=== PATIENT | male | born 1960 | race Caucasian/White ===

== ENCOUNTER 2019-01-18 14:47 | Emergency (ER) | payer OTHER, BC ==
[2019-01-18] MEDS ORDERED: NA CHLORIDE 0.9% 1,000 ML ONE (15:14)
[2019-01-18] MEDS ORDERED: DIPHENHYDRAMINE 50 MG/ML VIAL ONE (15:19)
[2019-01-18 15:35] LABS: Absolute Lymphocytes (CBC) 0.9 K/uL (0.7-4.9); Basophils % 0.2 % (0-1.3); Lymphocytes % 6.5 % (15.3-44.8); MPV 7.9 fL (7.6-11.3); RBC Red Blood Cell Count 4.93 M/uL (4.33-5.43)
[2019-01-18 15:40] LABS: Protime INR 0.99
[2019-01-18 15:57] LABS: ALT/SGPT 44 U/L (12-78); AST/SGOT 24 U/L (15-37); Albumin 3.8 g/dL (3.4-5.0); Alkaline Phosphatase 139 U/L (45-117); BUN Blood Urea Nitrogen 14 mg/dL (7-18); Bicarbonate 23 mmol/L (21-32); Bilirubin Direct 0.1 mg/dL (0-0.2); Bilirubin Total 0.6 mg/dL (0.2-1.0); Glucose Level 161 mg/dL (74-106); Magnesium 1.9 mg/dL (1.8-2.4); NT PRO-BNP 33 pg/mL (<125); Potassium 4.2 mmol/L (3.5-5.1); Protein, Total 7.1 g/dL (6.4-8.2); Sodium Level 140 mmol/L (136-145); Troponin (Emerg Dept Use Only) < 0.02 ng/mL (0.0-0.045)
--- NOTE | 2019-01-18 16:07 | RAD REPORT ---
EXAM DESCRIPTION: Saad Single View01/18/2019 3:38 pm CLINICAL HISTORY: Hypertension/blurred vision COMPARISON: none FINDINGS: Mild haziness to the lateral right upper lobe. Left lung appears clear of acute infiltrate The heart is normal size IMPRESSION: Mild haziness to the right lateral lung may indicate pneumonia
--- NOTE | 2019-01-18 17:38 | ER ---
Nurse's Notes [facility] Name: Mark Nye Age: 58 yrs Sex: Male : 1960 Arrival Date: 01/18/2019 Time: 14:49 Bed 5 Private MD: Diagnosis: Tremor, unspecified;Pneumonia, unspecified organism Presentation: 01/18 14:52 Presenting complaint: Patient states: "I take [place] and I've had an overdose aj1 experience before so I went down from 3 pills to one, I woke up this morning and while I was in the shower I had tremors really bad. I took 2 Xanax and it help, but now Im seeing double and I have a bad headache. I took a total of 4 Xanax today" Reports generalized weakness, dizziness/. Transition of care: patient was not received from another setting of care. Onset of symptoms was January 18, 2019 at 08:30. Risk Assessment: Do you want to hurt yourself or someone else? Patient reports no desire to harm self or others. Initial Sepsis Screen: Does the patient meet any 2 criteria? No. Patient's initial sepsis screen is negative. Does the patient have a suspected source of infection? No. Patient's initial sepsis screen is negative. Care prior to arrival: None. 14:52 Method Of Arrival: Ambulatory aj 14:52 Acuity: COLE 2 aj1 Triage Assessment: 14:57 The onset of the patients symptoms was January 18, 2019 at 08:30. General: Appears in aj1 no apparent distress. uncomfortable, Behavior is calm, cooperative, appropriate for age. Pain: Complains of pain in forehead Pain currently is 6 out of 10 on a pain scale. Neuro: Level of Consciousness is awake, alert, obeys commands, Oriented to person, place, time, situation, Reports dizziness, headache. Cardiovascular: Patient's skin is warm and dry. Respiratory: Airway is patent Respiratory effort is even, unlabored, Respiratory pattern is regular, symmetrical. Historical: - Allergies: 14:57 No Known Allergies; aj1 - Home Meds: 14:57 [place] Carbonate Oral [Active]; Lamictal Oral [Active]; Neurontin Oral [Active]; blood aj1 pressure medication [Active]; cholesterol medication [Active]; - PMHx: 14:57 Depression; Anxiety; Hyperlipidemia; Hypertension; aj1 - Immunization history:: Flu vaccine is not up to date. - Social history:: Smoking status: Patient/guardian denies using tobacco. - Ebola Screening: : Patient denies travel to an Ebola-affected area in the 21 days before illness onset. Screenin:05 Abuse screen: Denies threats or abuse. Denies injuries from another. Nutritional sv screening: No deficits noted. Tuberculosis screening: No symptoms or risk factors identified. Fall Risk None identified. Assessment: 15:05 General: Appears in no apparent distress. comfortable, well groomed, well developed, sv Behavior is calm, cooperative, appropriate for age. General: Reports that he started weaning down on his [place] about 2 weeks ago to 2 tabs and after 4 days went down to 1 tablet, he states that he wants to get off of it because it makes him lithium toxic. Pain: Complains of pain in forehead Pain currently is 6 out of 10 on a pain scale. Quality of pain is described as throbbing, Is continuous. Neuro: Level of Consciousness is awake, alert, obeys commands, Oriented to person, place, time, situation, Moves all extremities. Full function Gait is steady, Speech is normal, Facial symmetry appears normal, Reports headache frontal area. Neuro: Reports diplopia, with only small objects, not with large objects. Cardiovascular: Patient's skin is warm and dry. Rhythm is sinus rhythm. Respiratory: Airway is patent Respiratory effort is even, unlabored, Respiratory pattern is regular, symmetrical. Derm: Skin is pink, warm \\T\\ dry. Musculoskeletal: Range of motion: intact in all extremities. 16:26 Reassessment: Patient appears in no apparent distress at this time. Patient and/or sv family updated on plan of care and expected duration. Pain level reassessed. Patient is alert, oriented x 3, equal unlabored respirations, skin warm/dry/pink. 17:55 Reassessment: Patient appears in no apparent distress at this time. Patient and/or sv family updated on plan of care and expected duration. Pain level reassessed. Patient is alert, oriented x 3, equal unlabored respirations, skin warm/dry/pink. Vital Signs: 14:57 BP 133 / 93; Pulse 112; Resp 20; Temp 99.8; Pulse Ox 97% on R/A; Weight 74.84 kg (R); aj1 Height 5 ft. 9 in. (175.26 cm) (R); Pain 6/10; 15:48 BP 112 / 75; Pulse 97; Resp 25; Pulse Ox 95% on R/A; sv 16:26 BP 120 / 78; Pulse 94; Resp 17; Pulse Ox 96% on R/A; sv 17:13 BP 111 / 68; Pulse 93; Resp 18; Pulse Ox 97% on R/A; sv 14:57 Body Mass Index 24.37 (74.84 kg, 175.26 cm) aj1 ED Course: 14:49 Patient arrived in ED. as 14:56 Triage completed. aj1 14:57 Arm band placed on Patient placed in an exam room. aj1 15:05 Yesi Devi, RN is Primary Nurse. sv 15:05 Patient has correct armband on for positive identification. Placed in gown. Bed in low sv position. Call light in reach. Adult w/ patient. fabrication technician on. Pulse ox on. NIBP on. Door closed. Head of bed elevated. 15:07 Dudley Munoz MD is Attending Physician. kdr 15:10 Initial lab(s) drawn, by nj, sent to lab. Inserted saline lock: 22 gauge in right jb1 forearm, using aseptic technique. Blood collected. 15:20 [place] Sent. sv 15:21 XRAY Chest (1 view) Sent. sv 15:21 X-ray(s) taken. sv 15:40 XRAY Chest (1 view) In Process Unspecified. EDMS 15:46 EKG done, by test engineering technician. reviewed by Dudley Munoz MD. sm3 16:00 Awaiting lab results, Awaiting re-evaluation by ER provider. sv 16:[address] Lawelr with Dr. Munoz for patient transfer consultation. eb 17:29 Urine collected: clean catch specimen, clear, nichole colored. jb1 17:56 No provider procedures requiring assistance completed. IV discontinued, intact, sv bleeding controlled, No redness/swelling at site. Pressure dressing applied. Administered Medications: 15:20 Drug: NS 0.9% 1000 ml Route: IV; Rate: 1 bolus; Site: right forearm; sv 15:20 Drug: Benadryl 25 mg Route: IVP; Site: right forearm; sv 16:00 Follow up: Response: No adverse reaction sv 17:56 Drug: Rocephin 1 grams Route: IV; Rate: calculated rate; Site: right forearm; sv 17:56 Drug: AZITHromycin 500 mg Route: PO; sv 17:56 Follow up: Response: Medication administered at discharge. sv Outcome: 17:38 Discharge ordered by . [facility] 17:56 Discharged to home via wheelchair, with family. sv 17:56 Condition: stable 17:56 Discharge instructions given to patient, family, Instructed on discharge instructions, follow up and referral plans. medication usage, Demonstrated understanding of instructions, follow-up care, medications, Prescriptions given X 1. 17:57 Patient left the ED. sv Signatures: Dispatcher [employer] EDOsmar Delgado jb1 Daily Luna RN RN ajYesi Kim RN RN Dudley Flower MD MD kdr Martinez, Radha Gibbs, Ana Epperson 3
[2019-01-18 17:39] LABS: Urine Blood TRACE (NEG); Urine Glucose NEGATIVE (NEG); Urine Protein NEGATIVE (NEG)
--- NOTE | 2019-01-18 17:39 | EDPHYS ---
Physician Documentation [facility] Name: Mark Nye Age: 58 yrs Sex: Male : 1960 Arrival Date: 01/18/2019 Time: 14:49 Bed 5 Private MD: ED Physician Dudley Munoz HPI: 01/18 18:20 This 58 yrs old Male presents to ER via Ambulatory with complaints of Blurred kdr Vision, Trouble Walking. 18:20 The patient presents to the emergency department with weakness of the entire body, kdr generalized weakness, that is mild, Tremors. Onset: The symptoms/episode began/occurred suddenly, just prior to arrival. Context: occurred at home, occurred while the patient was walking. Associated signs and symptoms: Pertinent positives: paresthesias, blurred vision, weakness, Pertinent negatives: altered mental status, dizziness, headache, neck stiffness, paresthesias, seizure, syncope, near-syncope, double vision, visual field changes, loss of vision. Severity of symptoms: At their worst the symptoms were moderate severe incapacitating just prior to arrival, in the emergency department the symptoms have improved markedly. Patient's baseline: Neuro: alert and fully oriented, Motor: no deficits, Ambulation: walks with assist only, uses walker, Speech: normal, The patient has a previous history of Depression, anxiety. Current symptoms: Generalized weakness. The patient has not experienced similar symptoms in the past. The patient has been recently seen by a physician: the patient's primary care provider. The patient has been self tapering his [place] but is concerned that Lamictal could cause the same s/s today. Historical: - Allergies: 14:57 No Known Allergies; aj1 - Home Meds: 14:57 [place] Carbonate Oral [Active]; Lamictal Oral [Active]; Neurontin Oral [Active]; blood aj1 pressure medication [Active]; cholesterol medication [Active]; - PMHx: 14:57 Depression; Anxiety; Hyperlipidemia; Hypertension; aj1 - Immunization history:: Flu vaccine is not up to date. - Social history:: Smoking status: Patient/guardian denies using tobacco. - Ebola Screening: : Patient denies travel to an Ebola-affected area in the 21 days before illness onset. ROS: 18:20 Constitutional: Negative for fever, chills, and weight loss, Eyes: Negative for injury, kdr pain, redness, and discharge, Neck: Negative for injury, pain, and swelling, Cardiovascular: Negative for chest pain, palpitations, and edema, Respiratory: Negative for shortness of breath, cough, wheezing, and pleuritic chest pain, Abdomen/GI: Negative for abdominal pain, nausea, vomiting, diarrhea, and constipation, Back: Negative for injury and pain, : Negative for injury, bleeding, discharge, and swelling, MS/Extremity: Negative for injury and deformity, Skin: Negative for injury, rash, and discoloration, Neuro: Negative for weakness, numbness, tingling, and seizure activity - does have mild VILLA and tremors Psych: Negative for depression, anxiety, suicide ideation, homicidal ideation, and hallucinations, Allergy/Immunology: Negative for hives, rash, and allergies, Endocrine: Negative for neck swelling, polydipsia, polyuria, polyphagia, and marked weight changes, Hematologic/Lymphatic: Negative for swollen nodes, abnormal bleeding, and unusual bruising. Exam: 18:20 Constitutional: This is a well developed, well nourished patient who is awake, alert, kdr and in no acute distress. Head/Face: Normocephalic, atraumatic. Eyes: Pupils equal round and reactive to light, extra-ocular motions intact. Lids and lashes normal. Conjunctiva and sclera are non-icteric and not injected. Cornea within normal limits. Periorbital areas with no swelling, redness, or edema. Neck: Trachea midline, no thyromegaly or masses palpated, and no cervical lymphadenopathy. Supple, full range of motion without nuchal rigidity, or vertebral point tenderness. No Meningismus. Chest/axilla: Normal chest wall appearance and motion. Nontender with no deformity. No lesions are appreciated. Cardiovascular: Regular rate and rhythm with a normal S1 and S2. No gallops, murmurs, or rubs. Normal PMI, no JVD. No pulse deficits. Respiratory: Lungs have equal breath sounds bilaterally, clear to auscultation and percussion. No rales, rhonchi or wheezes noted. No increased work of breathing, no retractions or nasal flaring. Abdomen/GI: Soft, non-tender, with normal bowel sounds. No distension or tympany. No guarding or rebound. No evidence of tenderness throughout. Back: No spinal tenderness. No costovertebral tenderness. Full range of motion. Skin: Warm, dry with normal turgor. Normal color with no rashes, no lesions, and no evidence of cellulitis. MS/ Extremity: Pulses equal, no cyanosis. Neurovascular intact. Full, normal range of motion. Neuro: Awake and alert, GCS 15, oriented to person, place, time, and situation. Cranial nerves II-XII grossly intact. Motor strength 5/5 in all extremities. Sensory grossly intact. Cerebellar exam normal. Normal gait. Psych: Awake, alert, with orientation to person, place and time. Behavior, mood, and affect are within normal limits. Vital Signs: 14:57 BP 133 / 93; Pulse 112; Resp 20; Temp 99.8; Pulse Ox 97% on R/A; Weight 74.84 kg (R); aj1 Height 5 ft. 9 in. (175.26 cm) (R); Pain 6/10; 15:48 BP 112 / 75; Pulse 97; Resp 25; Pulse Ox 95% on R/A; sv 16:26 BP 120 / 78; Pulse 94; Resp 17; Pulse Ox 96% on R/A; sv 17:13 BP 111 / 68; Pulse 93; Resp 18; Pulse Ox 97% on R/A; sv 14:57 Body Mass Index 24.37 (74.84 kg, 175.26 cm) aj MDM: 17:38 Patient medically screened. kdr 18:25 Data reviewed: vital signs, nurses notes, lab test result(s), EKG, radiologic studies. kdr Counseling: I had a detailed discussion with the patient and/or guardian regarding: the historical points, exam findings, and any diagnostic results supporting the discharge/admit diagnosis, lab results, radiology results, the need for outpatient follow up. 01/18 15:08 Order name: Basic Metabolic Panel; Complete Time: 16:20 kdr 01/18 15:08 Order name: CBC with Diff kdr 01/18 15:08 Order name: LFT's; Complete Time: 16:20 kdr 01/18 15:08 Order name: Magnesium; Complete Time: 16:20 kdr 01/18 15:08 Order name: NT PRO-BNP; Complete Time: 16:20 kdr 01/18 15:08 Order name: PT-INR; Complete Time: 16:20 kdr 01/18 15:08 Order name: Troponin (emerg Dept Use Only); Complete Time: 16:20 kdr 01/18 15:08 Order name: Acetaminophen; Complete Time: 16:20 kdr 01/18 15:08 Order name: ETOH Level; Complete Time: 16:20 kdr 01/18 15:08 Order name: Ptt, Activated; Complete Time: 16:20 kdr 01/18 15:08 Order name: Salicylate; Complete Time: 16:20 kdr 01/18 15:08 Order name: Urine Drug Screen kdr 01/18 15:17 Order name: Kidder; Complete Time: 17:08 kdr 01/18 17:35 Order name: Urine Dipstick--Ancillary (enter results) eb 01/18 15:08 Order name: XRAY Chest (1 view); Complete Time: 16:44 kdr 01/18 15:08 Order name: EKG; Complete Time: 15:10 kdr 01/18 15:08 Order name: Cardiac monitoring; Complete Time: 15:20 kdr 01/18 15:08 Order name: EKG - Nurse/Tech; Complete Time: 15:20 kdr 01/18 15:08 Order name: IV Saline Lock; Complete Time: 15:11 kdr 01/18 15:08 Order name: Labs collected and sent; Complete Time: 15:11 [facility] 01/18 15:08 Order name: O2 Per Protocol; Complete Time: 15:11 [facility] 01/18 15:08 Order name: O2 Sat Monitoring; Complete Time: 15:11 [facility] 01/18 15:08 Order name: Urine Dipstick-Ancillary (obtain specimen); Complete Time: 17:30 kdr Administered Medications: 15:20 Drug: NS 0.9% 1000 ml Route: IV; Rate: 1 bolus; Site: right forearm; sv 15:20 Drug: Benadryl 25 mg Route: IVP; Site: right forearm; sv 16:00 Follow up: Response: No adverse reaction sv 17:56 Drug: Rocephin 1 grams Route: IV; Rate: calculated rate; Site: right forearm; sv 17:56 Drug: AZITHromycin 500 mg Route: PO; sv 17:56 Follow up: Response: Medication administered at discharge. sv Disposition: 01/18/19 17:38 Discharged to Home. Impression: Tremor, unspecified, Pneumonia, unspecified organism. - Condition is Stable. - Discharge Instructions: Tremor, Community-Acquired Pneumonia, Adult, [id number]. - Prescriptions for Zithromax Z- Bret 250 mg Oral Tablet - take 1 tablet by ORAL route once daily for 4 days; 4 tablet. - Medication Reconciliation Form, Thank You Letter, Antibiotic Education form. - Follow up: Private Physician; When: 2 - 3 days; Reason: If symptoms return, Further diagnostic work-up, Recheck today's complaints, Continuance of care, Re-evaluation by your physician. - Problem is new. - Symptoms have improved. Signatures: Dispatcher [employer] EDMS Daily Luna RN RN aj1 Yesi Devi RN RN sv Dudley Munoz MD MD kdr Corrections: (The following items were deleted from the chart) 17:57 17:38 01/18/2019 17:38 Discharged to Home. Impression: Tremor, unspecified; Pneumonia, sv unspecified organism. Condition is Stable. Forms are Medication Reconciliation Form, Thank You Letter, Antibiotic Education, Prescription Opioid Use. Follow up: Private Physician; When: 2 - 3 days; Reason: If symptoms return, Further diagnostic work-up, Recheck today's complaints, Continuance of care, Re-evaluation by your physician. Problem is new. Symptoms have improved. kdr
[2019-01-18] MEDS ORDERED: AZITHROMYCIN 250 MG TAB ONE (17:43)
[2019-01-18] MEDS ORDERED: CEFTRIAXONE/SWI 1gm 1 GM/10 ML SYR ONE (17:44)
[2019-01-18 17:49] LABS: Barbiturates NEGATIVE (NEGATIVE); Benzodiazepines POSITIVE (NEGATIVE); Cocaine NEGATIVE (NEGATIVE); METHAMPHETAM NEGATIVE (NEGATIVE); Methadone NEGATIVE (NEGATIVE); Opiates NEGATIVE (NEGATIVE); Phencyclidine NEGATIVE (NEGATIVE); THC Cannibis NEGATIVE (NEGATIVE)
[2019-01-18 18:43] VITALS: TEMP 99.8
[2019-01-18 18:46] VITALS: BP 111/68; O2SAT 97
[2019-01-18 21:00] LABS: Blood Morphology Comment NOT SEEN (NOT SEEN); Platelet Estimate ADEQ; Urine White Blood Cell Casts OK
--- NOTE | 2019-01-19 14:16 | EKG ---
Test Date: 2019-01-18 Test Time: 15:25:13 [facility]: DORIE MEASUREMENT RESULTS: Intervals: Rate: 100 IN: 152 QRSD: 100 QT: 326 QTc: 420 Massey: P: 45 IN: 152 QRS: 34 T: 44 INTERPRETIVE STATEMENTS: Normal sinus rhythm Normal ECG No previous ECG available for comparison Electronically Signed On 01-19-19 14:13:38 CDT by Steve Wright
== END 2019-01-18 17:57 | disposition home or self-care (01) ==
LOC: ER 14:47
DX: J18.9 Pneumonia, unspecified organism (principal); I10 Essential (primary) hypertension; E78.5 Hyperlipidemia, unspecified; F41.9 Anxiety disorder, unspecified; F32.9 Major depressive disorder, single episode, unspecified
CPT/HCPCS: 93005; 85025; 80048; 36415; 80320; 83735; 80329 ×2; 85610; 80178; 80076; 80307 ×8; 85730; 81003; 84484; 83880; 71045; 96375; 96374; 99285; J0696; J7030